=== PATIENT | female | born 1965 | race Caucasian/White ===

== ENCOUNTER 2017-12-25 15:03 | Observation (INO) | payer BC, SELFPAY ==
[2017-12-25] MEDS ORDERED: DUONEB 0.5-3 MG/3 ml Neb IH ONE ×2 (15:30→15:47)
[2017-12-25] MEDS ORDERED: Levofloxacin 500MG/100ML D5W 500 MG/100 ML BAG IV STA (15:30)
[2017-12-25] MEDS ORDERED: solu-MEDROL 125 MG IV ONE (15:30)
[2017-12-25] MEDS ORDERED: Levofloxacin 500MG/100ML D5W 500 MG/100 ML BAG IV ONE (15:38)
[2017-12-25] MEDS ORDERED: solu-MEDROL 125 MG ONE (15:38)
[2017-12-25] MEDS: Sodium Chloride 0.9% 1000 ML 1,000 ML IV SCH ×2 (15:43→20:37)
[2017-12-25 15:57] LABS: BASOPHIL % 0.6 % (0.0-0.4); Basophil (Absolute #) 0.05 (0-0.4); Eosinophil % 4.7 % (0.00-5.0); Eosinophil (Absolute #) 0.41 (0-0.5); Granulocyte Absolute (ANC) 6.03 (1.4-6.9); Granulocytes % 69.2 % (36.0-66.0); Hematocrit 41.8 % (35-47); Hemoglobin 13.6 gm/dl (12.0-16.0); Lymphocyte (Absolute #) 1.53 (1.0-4.6); Lymphocytes % 17.5 % (24.0-44.0); Mean Cell Volume 94.1 fl (78-100); Mean Corpuscular Hemoglobin 30.6 pg (26-32); Mean Corpuscular Hgb Concent. 32.5 g/dl (32-36); Mean Platelet Volume 11.6 fl (6-9.5); Platelet Count 264 K/mm3 (150-450); Red Blood Count 4.44 M/mm3 (4.1-5.4); Red Cell Distribution Width 13.2 % (11.5-14.0); White Blood Count 8.7 K/mm3 (4.0-10.5)
--- NOTE | 2017-12-25 16:03 | ERPHSYRPT ---
- History of Present Illness Time Seen by Provider: 12/25/17 15:15 Source: patient Exam Limitations: clinical condition Patient Subjective Stated Complaint: short of breath Triage Nursing Assessment: Pt c/o of shortness of breath, inspiratory and expiratory wheezing heard throughout, non productive cough, no edema, pulses normal, used husbands nebulizer before arriving at ER, O2 88% on room air, 95% with 2L NC, appears to be in mild distress Physician History: PATIENT WITH A HISTORY OF REACTIVE AIRWAY DISEASE, HYPERTENSION AND HYPOTHYROIDISM COMPLAINS OF A NONPRODUCTIVE COUGH, SHORTNESS OF BREATH WITH EXERTIONAL DYSPNEA X 3-4 DAYS. FINISHED AN ANTIBIOTIC COURSE OF ZITHROMAX AND MEDROL DOSEPAK THIS WEEK. STATES SYMPTOMS OF DYSPNEA IS WORSE. DENIES FEVER OR CHILLS. HAS ASSOCIATED CHEST TIGHTNESS. Timing/Duration: day(s) Activities at Onset: activity Severity of Dyspnea-Max: moderate Severity of Dyspnea-Current: moderate Possible Cause: occasional episodes Modifying Factors: Improves With: activity, exertion Associated Symptoms: constant, cough, wheezing International travel in last 2 weeks: No Allergies/Adverse Reactions: latex Adverse Reaction (Verified 12/25/17 15:17) IV DYE Allergy (Severe, Uncoded 02/26/13 21:47) Home Medications: Levothyroxine Sodium 50 Mcg [Synthroid 50 Mcg] 50 mcg PO DAILY 02/26/13 [ History] Albuterol Sulfate Mdi [Proair Hfa MDI] 1 inh PO UD PRN 12/25/17 [History] Aspirin EC 81 mg [Ecotrin 81 mg] 81 mg PO DAILY 12/25/17 [History] Carvedilol 3.125 mg [Coreg 3.125 MG] 3.125 mg PO BID 12/25/17 [History] Hydrocodone/APAP 5/325 [Callaway 5/325 mg] 1 - 2 tab PO Q4H PRN 12/25/17 [ History] Lisinopril [Zestril] 2.5 mg PO DAILY 12/25/17 [History] Omeprazole 20 MG [Prilosec 20 mg] 20 mg PO DAILY 12/25/17 [History] methylPREDNISolone [Methylprednisolone] 1 tab PO UD 12/25/17 [History] Hx Tetanus, Diphtheria Vaccination/Date Given: No Hx Influenza Vaccination/Date Given: No Hx Pneumococcal Vaccination/Date Given: No - Review of Systems Constitutional: No Symptoms, No Fever, No Chills Eyes: No Symptoms Ears, Nose, & Throat: No Symptoms Respiratory: Cough, Dyspnea, Dyspnea on Exertion (AGUERO), Wheezing Cardiac: Chest Pain, No Edema, No Syncope Abdominal/Gastrointestinal: No Abdominal Pain, No Nausea, No Vomiting, No Diarrhea Genitourinary Symptoms: No Symptoms, No Dysuria Musculoskeletal: No Symptoms, No Back Pain, No Neck Pain Skin: No Rash Neurological: No Dizziness, No Focal Weakness, No Sensory Changes Psychological: No Symptoms Endocrine: No Symptoms All Other Systems: Reviewed and Negative - Past Medical History Pertinent Past Medical History: Yes Neurological History: No Pertinent History ENT History: No Pertinent History Cardiac History: Hypertension Respiratory History: Asthma Endocrine Medical History: Hypothyroidism Musculoskeletal History: No Pertinent History GI Medical History: GERD History: No Pertinent History Psycho-Social History: No Pertinent History Female Reproductive Disorders: No Pertinent History - Past Surgical History Past Surgical History: Yes Neuro Surgical History: No Pertinent History Cardiac: No Pertinent History Respiratory: No Pertinent History Gastrointestinal: Appendectomy Musculoskeletal: Joint Replacement, Orthopedic Surgery Female Surgical History: Section - Social History Smoking Status: Former smoker Exposure to second hand smoke: No Drug Use: none Patient Lives Alone: No - Female History Hx Now: No - Nursing Vital Signs Nursing Vital Signs: Initial Vital Signs Pulse Rate 90 12/25/17 15:04 Respiratory Rate 23 12/25/17 15:04 Blood Pressure 136/80 12/25/17 15:04 O2 Sat by Pulse Oximetry 88 L 12/25/17 15:04 Pain Scale Pain Intensity 2 - Physical Exam General Appearance: mild distress, other (ARRIVES TO EMERGENCY WITH MODERATE TACHYPNEA AND AUDIBLE WHEEZES.) Ears, Nose, Throat Exam: hearing grossly normal Neck Exam: normal inspection, supple Respiratory Exam: diminished breath sounds, prolonged expirations, wheezing Cardiovascular/Chest Exam: normal heart sounds, regular rate/rhythm, normal peripheral pulses Abdominal/Gastrointestinal Exam: soft, normal bowel sounds, other (OBESE) Peripheral Pulses Exam: carotid (R): 2+, carotid (L): 2+, femoral (R): 2+, femoral (L): 2+, dorsalis-pedis (R): 2+, dorsalis-pedis (L): 2+ Neurologic Exam: alert, oriented x 3, cooperative Skin Exam: normal color, warm SpO2 Interpretation: normal SpO2: 98 Oxygen Delivery: Nasal Cannula - Course EKG Interpreted by Me: RATE, Sinus Rhythm, NORMAL AXIS - Radiology Exams Chest X-ray Interpretation: Interpreted by me (RIGHT LOWER LOBE INFILTRATE) Ordered Tests: Active Orders 24 hr Category Date Time Status Up Ad Itzel ROUTINE Activity 12/25/17 17:41 Active Code Status Order ROUTINE Care 12/25/17 17:41 Active EKG-ER Only STAT Care 12/25/17 15:30 Active IV Care Q6H Care 12/25/17 17:41 Active IV Insertion STAT Care 12/25/17 15:46 Active Oxygen-ED Only NASAL CANNULA 2 lpm Care 12/25/17 15:[address] in Observation ROUTINE Care 12/25/17 17:41 Active Filiberto Hose, Apply ROUTINE Care 12/25/17 17:41 Active Telemetry ROUTINE Care 12/25/17 17:41 Active Vital Signs Q4H Care 12/25/17 17:41 Active Weight,Daily 0600 Care 12/25/17 17:41 Active Regular Diet Diet 12/25/17 Breakfast Active CHEST 1 VIEW (PORTABLE) Stat Exams 12/25/17 16:29 Taken BMP Stat Lab 12/25/17 15:20 Completed CBC W DIFF Stat Lab 12/25/17 15:20 Completed D-DIMER QUANTITATION Stat Lab 12/25/17 15:20 Completed Lactic Acid Stat Lab 12/25/17 15:30 Completed MAGNESIUM Stat Lab 12/25/17 15:20 Completed PT INR [PROTIME WITH INR] Stat Lab 12/25/17 16:22 Completed TROPONIN Q3H Lab 12/25/17 15:20 Completed TROPONIN Q3H Lab 12/25/17 18:45 Ordered TROPONIN Q3H Lab 12/25/17 21:45 Ordered TROPONIN Q3H Lab 12/26/17 00:45 Ordered TROPONIN Q3H Lab 12/26/17 03:45 Ordered Oxygen NASAL CANNULA 2 lpm RT 12/25/17 17:41 Active Peak Expiratory Flow Rate ONCE RT 12/25/17 15:36 Completed Pulse Oximetry CONTINUOUS RT 12/25/17 17:43 Active Respiratory Nebulizer STAT RT 12/25/17 15:34 Completed Respiratory Nebulizer STAT RT 12/25/17 16:30 Completed Respiratory Therapy Assessment DAILY RT 12/25/17 15:44 Completed Respiratory Therapy Assessment DAILY RT 12/25/17 16:51 Active Respiratory Therapy Consult ROUTINE RT 12/25/17 17:41 Active Transfer Order Routine Transfer 12/25/17 Ordered Medication Summary Generic Name Dose Route Start Last Admin Trade Name Freq PRN Reason Stop Dose Admin Acetaminophen 650 mg 12/25/17 17:47 Tylenol 325 Mg PO 01/24/18 17:46 Q4H PRN PRN PAIN AND/OR FEVER Albuterol/Ipratropium 3 ml 12/25/17 19:00 Duoneb 0.5-3 Mg/3 Ml Neb IH 01/24/18 18:59 Q4HRT [facility] Aspirin 81 mg 12/26/17 10:00 Ecotrin 81 Mg PO 01/25/18 09:59 DAILY MURTAZA Carvedilol 3.125 mg 12/25/17 22:00 Coreg 3.125 Mg PO 01/24/18 21:59 BID MURTAZA Famotidine 20 mg 12/25/17 22:00 Pepcid 20 Mg PO 01/24/18 21:59 BID MURTAZA Sodium Chloride 1,000 mls @ 50 mls/hr 12/25/17 15:30 12/25/17 15:43 Sodium Chloride 0.9% 1000 Ml IV 01/24/18 15:29 50 mls/hr .Q20H MURTAZA Administration Levofloxacin/Dextrose 750 mg in 150 mls @ 100 mls/hr 12/26/17 10:00 Levofloxacin 750mg/150ml D5w IV 01/25/18 09:59 Q24H10 MUR[facility]ZA Levalbuterol HCl 1.25 mg 12/25/17 17:47 Xopenex 1.25 Mg/0.5 Ml Ud Nebule IH 01/24/18 17:46 Q2HPRN PRN DIFFICULTY BREATHING Levothyroxine Sodium 50 mcg 12/26/17 10:00 Synthroid 50 Mcg PO 01/25/18 09:59 QAM [facility] Lisinopril 205 mg 12/26/17 10:00 Zestril 10 Mg PO 01/25/18 09:59 DAILY [facility] Methylprednisolone Sodium Succinate 80 mg 12/25/17 18:00 Solu-Medrol 125 Mg IV 01/24/18 17:59 Q6HT MURTAZA Discontinued Medications Generic Name Dose Route Start Last Admin Trade Name Annamaria PRN Reason Stop Dose Admin Acetaminophen 975 mg 12/25/17 16:50 12/25/17 16:52 Tylenol 325 Mg PO 12/25/17 16:51 975 mg STAT STA Administration Acetaminophen Confirm 12/25/17 16:51 Tylenol 325 Mg Administered 12/25/17 16:52 Dose 975 mg .ROUTE .STK-MED ONE Albuterol Sulfate 10 mg 12/25/17 16:29 12/25/17 16:40 Proventil 2.5 Mg/3 Ml Neb IH 12/25/17 16:30 10 mg STAT ONE Administration Albuterol Sulfate Confirm 12/25/17 16:35 Proventil 2.5 Mg/3 Ml Neb Administered 12/25/17 16:36 Dose 2.5 mg IH .STK-MED ONE Albuterol Sulfate Confirm 12/25/17 16:39 Proventil 2.5 Mg/3 Ml Neb Administered 12/25/17 16:40 Dose 7.5 mg IH .STK-MED ONE Albuterol/Ipratropium 3 ml 12/25/17 15:30 12/25/17 15:49 Duoneb 0.5-3 Mg/3 Ml Neb IH 12/25/17 15:31 3 ml STAT ONE Administration Albuterol/Ipratropium Confirm 12/25/17 15:47 Duoneb 0.5-3 Mg/3 Ml Neb Administered 12/25/17 15:48 Dose 3 ml IH .STK-MED ONE Enoxaparin Sodium 80 mg 12/25/17 17:40 12/25/17 17:52 Enoxaparin Sodium SQ 12/25/17 17:41 80 mg STAT ONE Administration Enoxaparin Sodium Confirm 12/25/17 17:50 Enoxaparin Sodium Administered 12/25/17 17:51 Dose 80 mg SQ .STK-MED ONE Levofloxacin/Dextrose 500 mg in 100 mls @ 100 mls/hr 12/25/17 15:30 12/25/17 16:54 Levofloxacin 500mg/100ml D5w IV 12/25/17 16:29 Infused STAT STA Infusion Levofloxacin/Dextrose Confirm 12/25/17 15:38 Levofloxacin 500mg/100ml D5w Administered 12/25/17 15:39 Dose 500 mg in 100 mls @ ud IV .STK-MED ONE Methylprednisolone Sodium Succinate 125 mg 12/25/17 15:30 12/25/17 15:42 Solu-Medrol 125 Mg IV 12/25/17 15:31 125 mg STAT ONE Administration Methylprednisolone Sodium Succinate Confirm 12/25/17 15:38 Solu-Medrol 125 Mg Administered 12/25/17 15:39 Dose 125 mg .ROUTE .STK-MED ONE Lab/Rad Data: Laboratory Result Diagrams 12/25/17 15:20 12/25/17 15:20 Laboratory Results 12/25/17 12/25/17 12/25/17 Range/Units 16:22 15:45 15:30 WBC (4.0-10.5) K/mm3 RBC (4.1-5.4) M/mm3 Hgb (12.0-16.0) gm/dl Hct (35-47) % MCV (78-100) fl MCH (26-32) pg MCHC (32-36) g/dl RDW (11.5-14.0) % Plt Count (150-450) K/mm3 MPV (6-9.5) fl Gran % (36.0-66.0) % Eos # (Auto) (0-0.5) Absolute Lymphs (auto) (1.0-4.6) Absolute Monos (auto) (0.0-1.3) Lymphocytes % (24.0-44.0) % Monocytes % (0.0-12.0) % Eosinophils % (0.00-5.0) % Basophils % (0.0-0.4) % Absolute Granulocytes (1.4-6.9) Basophils # (0-0.4) PT 12.4 H (9.95-12.35) SECONDS INR 1.07 (0.8-3.0) D-Dimer (215-500) ng/mL Sodium (137-145) mmol/L Potassium (3.5-5.1) mmol/L Chloride (98-107) mmol/L Carbon Dioxide (22-30) mmol/L Anion Gap (5-15) MEQ/L BUN (7-17) mg/dL Creatinine (0.52-1.04) mg/dL Estimated GFR ML/MIN Glucose (74-106) mg/dL Lactic Acid 0.9 (0.4-2.0) Calcium (8.4-10.2) mg/dL Magnesium (1.6-2.3) mg/dL Troponin I (0.000-0.034) ng/mL Influenza Type A Ag NEGATIVE (NEGATIVE) Influenza Type B Ag NEGATIVE (NEGATIVE) RSV (PCR) NEGATIVE (Negative) 12/25/17 12/25/17 12/25/17 Range/Units 15:20 15:20 15:20 WBC (4.0-10.5) K/mm3 RBC (4.1-5.4) M/mm3 Hgb (12.0-16.0) gm/dl Hct (35-47) % MCV (78-100) fl MCH (26-32) pg MCHC (32-36) g/dl RDW (11.5-14.0) % Plt Count (150-450) K/mm3 MPV (6-9.5) fl Gran % (36.0-66.0) % Eos # (Auto) (0-0.5) Absolute Lymphs (auto) (1.0-4.6) Absolute Monos (auto) (0.0-1.3) Lymphocytes % (24.0-44.0) % Monocytes % (0.0-12.0) % Eosinophils % (0.00-5.0) % Basophils % (0.0-0.4) % Absolute Granulocytes (1.4-6.9) Basophils # (0-0.4) PT (9.95-12.35) SECONDS INR (0.8-3.0) D-Dimer 887 H* (215-500) ng/mL Sodium 142 (137-145) mmol/L Potassium 4.0 (3.5-5.1) mmol/L Chloride 105 (98-107) mmol/L Carbon Dioxide 30 (22-30) mmol/L Anion Gap 12.4 (5-15) MEQ/L BUN 13 (7-17) mg/dL Creatinine 1.07 H (0.52-1.04) mg/dL Estimated GFR 56.8 ML/MIN Glucose 95 (74-106) mg/dL Lactic Acid (0.4-2.0) Calcium 9.4 (8.4-10.2) mg/dL Magnesium 1.9 (1.6-2.3) mg/dL Troponin I < 0.012 (0.000-0.034) ng/mL Influenza Type A Ag (NEGATIVE) Influenza Type B Ag (NEGATIVE) RSV (PCR) (Negative) 12/25/17 Range/Units 15:20 WBC 8.7 (4.0-10.5) K/mm3 RBC 4.44 (4.1-5.4) M/mm3 Hgb 13.6 (12.0-16.0) gm/dl Hct 41.8 (35-47) % MCV 94.1 (78-100) fl MCH 30.6 (26-32) pg MCHC 32.5 (32-36) g/dl RDW 13.2 (11.5-14.0) % Plt Count 264 (150-450) K/mm3 MPV 11.6 H (6-9.5) fl Gran % 69.2 H (36.0-66.0) % Eos # (Auto) 0.41 (0-0.5) Absolute Lymphs (auto) 1.53 (1.0-4.6) Absolute Monos (auto) 0.70 (0.0-1.3) Lymphocytes % 17.5 L (24.0-44.0) % Monocytes % 8.0 (0.0-12.0) % Eosinophils % 4.7 (0.00-5.0) % Basophils % 0.6 (0.0-0.4) % Absolute Granulocytes 6.03 (1.4-6.9) Basophils # 0.05 (0-0.4) PT (9.95-12.35) SECONDS INR (0.8-3.0) D-Dimer (215-500) ng/mL Sodium (137-145) mmol/L Potassium (3.5-5.1) mmol/L Chloride (98-107) mmol/L Carbon Dioxide (22-30) mmol/L Anion Gap (5-15) MEQ/L BUN (7-17) mg/dL Creatinine (0.52-1.04) mg/dL Estimated GFR ML/MIN Glucose (74-106) mg/dL Lactic Acid (0.4-2.0) Calcium (8.4-10.2) mg/dL Magnesium (1.6-2.3) mg/dL Troponin I (0.000-0.034) ng/mL Influenza Type A Ag (NEGATIVE) Influenza Type B Ag (NEGATIVE) RSV (PCR) (Negative) - Progress Progress: improved Air Movement: fair Progress Note: 12/25/17 16:24 PULSE OXIMETRY 88% UPON ARRIVAL, LEVAQUIN 500MG IVPB AFTER 2 SETS OF BLOOD CULTURES, ELEVATED DDIMER 887, HAS IV CONTRAST ALLERGY, ADMINISTERED LOVENOX 80MG SUBQ, ADMINISTERED DUO NEB AEROSOL, FOLLOWED BY CONTINUOUS ALBUTEROL 10MG OVER 1 HOUR, IMPROVED AIR EXCHANGE BUT WHEEZES PERSIST. 12/25/17 17:35 Blood Culture(s) Obtained: Yes Antibiotics given: Yes Discussed with : Laurie Will see patient in: hospital (observation) (DISCUSSED WITH DR GUTIERRES AT 1730 FOR OBSERVATION) - Departure Time of Disposition: 17:56 Departure Disposition: Observation Clinical Impression: PNEUMONIA WITH BRONCHIOSPASM Condition: Stable Critical Care Time: No Referrals: EFRA GUTIERRES MD [Primary Care Provider] -
[2017-12-25 16:11] LABS: ANION GAP 12.4 MEQ/L (5-15); Calcium 9.4 mg/dL (8.4-10.2); Creatinine 1 1.07 mg/dL (0.52-1.04)
[2017-12-25] MEDS ORDERED: PROVENTIL 2.5 MG/3 ML NEB IH ONE ×3 (16:29→16:39)
[2017-12-25 16:30] LABS: INFLUENZA A NEGATIVE (NEGATIVE); INFLUENZA B NEGATIVE (NEGATIVE); RESPIRATORY SYNCTIAL VIRUS NEGATIVE (Negative)
[2017-12-25 16:44] LABS: INR 1.07 (0.8-3.0)
[2017-12-25] MEDS ORDERED: TYLENOL 325 MG PO STA (16:50)
[2017-12-25] MEDS ORDERED: TYLENOL 325 MG ONE (16:51)
[2017-12-25] MEDS ORDERED: ENOXAPARIN SODIUM SQ ONE ×2 (17:40→17:50)
[2017-12-25] MEDS ORDERED: Xopenex 1.25 MG/0.5 ML UD NEBULE IH PRN (17:47)
[2017-12-25] MEDS ORDERED: solu-MEDROL 125 MG IV SCH (18:00)
--- NOTE | 2017-12-25 20:03 | XRAY ---
Indication: Short of breath. Comparison: July 31, 2008. Portable chest demonstrates new right lower lobe infiltrate without consolidation/large effusion. Remaining heart and left lung unremarkable. Bony thorax intact.
[2017-12-25] MEDS ORDERED: NORCO 5/325 MG PO PRN (21:03)
[2017-12-25] MEDS: Pepcid 20 MG PO SCH (22:00)
[2017-12-25] MEDS: solu-MEDROL 125 MG IV SCH ×2 (22:00→23:24)
[2017-12-25] MEDS: Coreg 3.125 MG PO SCH (22:00)
[2017-12-25] MEDS: DUONEB 0.5-3 MG/3 ml Neb IH SCH (22:56)
[2017-12-26] MEDS: DUONEB 0.5-3 MG/3 ml Neb IH SCH ×6 (03:19→22:51)
[2017-12-26] MEDS: solu-MEDROL 125 MG IV SCH ×4 (05:28→23:12)
[2017-12-26] MEDS: TYLENOL 325 MG PO PRN ×2 (06:57→18:50)
[2017-12-26] MEDS ORDERED: TYLENOL 325 MG ONE (06:57)
[2017-12-26] MEDS ORDERED: ALBUTEROL SULFATE MDI PO PRN (07:40)
[2017-12-26] MEDS ORDERED: PROVENTIL COMMON CANISTER IH PRN (07:43)
[2017-12-26] MEDS ORDERED: Medrol Dosepack PO SCH (07:45)
[2017-12-26] MEDS ORDERED: FLUZONE QUAD (36mo-64yo) 2018-2019 SYRINGE IM ONE (10:00)
[2017-12-26] MEDS: Zestril 5 MG PO SCH (10:48)
[2017-12-26] MEDS: Pepcid 20 MG PO SCH ×2 (10:48→21:21)
[2017-12-26] MEDS: SYNTHROID 50 MCG PO SCH (10:48)
[2017-12-26] MEDS: Protonix 40MG Tablet PO SCH (10:48)
[2017-12-26] MEDS: Coreg 3.125 MG PO SCH ×2 (10:49→21:21)
[2017-12-26] MEDS: ECOTRIN 81 MG PO SCH (10:49)
[2017-12-26] MEDS: LEVOFLOXACIN 750MG/150ML D5W 750 MG/150 ML BAG IV SCH (10:52)
--- NOTE | 2017-12-26 11:47 | PCM.HP ---
History of Present Illness - Chief Complaint Chief Complaint: cough and shortness of breath for 3 days, failed outpatient treatment History of Present Illness: is a 52 year old female.Pt c/o of shortness of breath, inspiratory and expiratory wheezing heard throughout, non productive cough, no edema, pulses normal, used husbands nebulizer before arriving at ER, O2 88% on room air , 95% with 2L NC, appears to be in mild distress - Review of Systems Constitutional: No Fever, No Chills Eyes: No Symptoms Ears, Nose, & Throat: No Symptoms Respiratory: No Cough, No Short Of Breath Cardiac: No Chest Pain, No Edema, No Syncope Abdominal/Gastrointestinal: No Abdominal Pain, No Nausea, No Vomiting, No Diarrhea Genitourinary Symptoms: No Dysuria Musculoskeletal: No Back Pain, No Neck Pain Skin: No Rash Neurological: No Dizziness, No Focal Weakness, No Sensory Changes Psychological: No Symptoms Endocrine: No Symptoms Hematologic/Lymphatic: No Symptoms Immunological/Allergic: No Symptoms Medications & Allergies Home Medications: Home Medication List Levothyroxine Sodium 50 Mcg [Synthroid 50 Mcg] 50 mcg PO DAILY 02/26/13 [ History Confirmed 12/25/17] Albuterol Sulfate Mdi [Proair Hfa MDI] 2 inh PO Q4-6HPRN PRN 12/25/17 [ History Confirmed 12/25/17] Aspirin EC 81 mg [Ecotrin 81 mg] 81 mg PO DAILY 12/25/17 [History Confirmed 12/25/17] Carvedilol 3.125 mg [Coreg 3.125 MG] 3.125 mg PO BID 12/25/17 [History Confirmed 12/25/17] Hydrocodone/APAP 5/325 [[place] 5/325 mg] 0.5 tab PO DAILY 12/25/17 [ History Confirmed 12/25/17] Lisinopril [Zestril] 2.5 mg PO DAILY 12/25/17 [History Confirmed 12/25/17] Omeprazole 20 MG [Prilosec 20 mg] 20 mg PO DAILY 12/25/17 [History Confirmed ] methylPREDNISolone [Methylprednisolone] 1 tab PO UD 12/25/17 [History Confirmed 10/28/18] Allergies/Adverse Reactions: Allergies Allergy/AdvReac Type Severity Reaction Status Date / Time latex AdvReac Verified 12/25/17 18:33 IV DYE Allergy Severe Uncoded 12/25/17 18:33 - Past Medical History Past Medical History: Yes Neurological History: No Pertinent History ENT History: No Pertinent History Cardiac History: Hypertension Respiratory History: Pneumonia Endocrine Medical History: Hypothyroidism Musculoskelatal History: No Pertinent History GI Medical History: GERD History: No Pertinent History Pyscho-Social History: No Pertinent History Reproductive Disorders: No Pertinent History - Female History Hx Last Menstrual Period: Unknown Are you now?: No - Past Surgical History Past Surgical History: Yes Neuro Surgical History: No Pertinent History Cardiac History: No Pertinent History Respiratory Surgery: No Pertinent History GI Surgical History: Appendectomy, Cholecystectomy Musculskeletal Surgical Hx: Joint Replacement, Orthopedic Surgery Female Surgical History: Section Other Surgical History: Broken Arm, John/elbow replacement Right arm, left knee replacement. Squamous cells removed from cervix. - Social History Smoking Status: Former smoker Exposure to second hand smoke: No Alcohol: None Drug Use: none - Physical Exam Vital Signs: Vital Signs - 24 hr Temp Pulse Resp BP Pulse Ox 12/26/17 10:35 78 20 92 L 12/26/17 07:47 98.1 F 76 18 109/72 91 L 12/26/17 06:45 76 18 91 L 12/26/17 04:12 98.6 F 72 20 97/50 94 L 12/26/17 04:00 20 12/26/17 00:00 20 12/25/17 23:28 99.0 F 93 H 20 98/57 95 12/25/17 22:59 92 H 18 95 12/25/17 20:00 20 12/25/17 19:51 98.9 F 81 20 135/73 95 12/25/17 19:29 78 18 95 12/25/17 18:48 98.9 F 81 20 135/73 95 12/25/17 18:00 98 12/25/17 17:54 98.0 F 79 16 117/60 94 L 12/25/17 17:31 98.0 F 90 18 117/60 96 12/25/17 16:52 89 20 96 12/25/17 16:23 97.6 F 75 18 99/80 96 12/25/17 15:52 68 18 98 12/25/17 15:04 90 23 136/80 93 L Oxygen-Last 24 hours O2 Percentage 2 Liters = 28% O2 Percentage 2 Liters = 28% O2 Percentage 6 Liters = 44% O2 Percentage 2 Liters = 28% General Appearance: no apparent distress, alert Neurologic Exam: alert, oriented x 3, cooperative, normal mood/affect, nml cerebellar function, nml station & gait, sensation nml, No motor deficits Eye Exam: PERRL/EOMI, eyes nml inspection Ears, Nose, Throat Exam: normal ENT inspection, TMs normal, pharynx normal, moist mucous membranes Neck Exam: normal inspection, non-tender, supple, full range of motion Respiratory Exam: diminished breath sounds, prolonged expirations, crackles/ rales, rhonchi, wheezing, No respiratory distress Cardiovascular Exam: regular rate/rhythm, normal heart sounds, normal peripheral pulses Gastrointestinal/Abdomen Exam: soft, normal bowel sounds, No tenderness, No mass Back Exam: normal inspection, normal range of motion, No CVA tenderness, No vertebral tenderness Extremity Exam: normal inspection, normal range of motion, pelvis stable Skin Exam: normal color, warm, dry, No rash Lymphatic Exam: No adenopathy Results - Labs Lab/Micro Results: Lab Results-Last 24 Hours 12/25/17 12/25/17 12/25/17 Range/Units 15:20 15:20 15:20 WBC 8.7 (4.0-10.5) K/mm3 RBC 4.44 (4.1-5.4) M/mm3 Hgb 13.6 (12.0-16.0) gm/dl Hct 41.8 (35-47) % MCV 94.1 (78-100) fl MCH 30.6 (26-32) pg MCHC 32.5 (32-36) g/dl RDW 13.2 (11.5-14.0) % Plt Count 264 (150-450) K/mm3 MPV 11.6 H (6-9.5) fl Gran % 69.2 H (36.0-66.0) % Eos # (Auto) 0.41 (0-0.5) Absolute Lymphs (auto) 1.53 (1.0-4.6) Absolute Monos (auto) 0.70 (0.0-1.3) Lymphocytes % 17.5 L (24.0-44.0) % Monocytes % 8.0 (0.0-12.0) % Eosinophils % 4.7 (0.00-5.0) % Basophils % 0.6 (0.0-0.4) % Absolute Granulocytes 6.03 (1.4-6.9) Basophils # 0.05 (0-0.4) PT (9.95-12.35) SECONDS INR (0.8-3.0) D-Dimer 887 H* (215-500) ng/mL Sodium 142 (137-145) mmol/L Potassium 4.0 (3.5-5.1) mmol/L Chloride 105 (98-107) mmol/L Carbon Dioxide 30 (22-30) mmol/L Anion Gap 12.4 (5-15) MEQ/L BUN 13 (7-17) mg/dL Creatinine 1.07 H (0.52-1.04) mg/dL Estimated GFR 56.8 ML/MIN Glucose 95 (74-106) mg/dL Lactic Acid (0.4-2.0) Calcium 9.4 (8.4-10.2) mg/dL Magnesium 1.9 (1.6-2.3) mg/dL Troponin I (0.000-0.034) ng/mL Influenza Type A Ag (NEGATIVE) Influenza Type B Ag (NEGATIVE) RSV (PCR) (Negative) 12/25/17 12/25/17 12/25/17 Range/Units 15:20 15:30 15:45 WBC (4.0-10.5) K/mm3 RBC (4.1-5.4) M/mm3 Hgb (12.0-16.0) gm/dl Hct (35-47) % MCV (78-100) fl MCH (26-32) pg MCHC (32-36) g/dl RDW (11.5-14.0) % Plt Count (150-450) K/mm3 MPV (6-9.5) fl Gran % (36.0-66.0) % Eos # (Auto) (0-0.5) Absolute Lymphs (auto) (1.0-4.6) Absolute Monos (auto) (0.0-1.3) Lymphocytes % (24.0-44.0) % Monocytes % (0.0-12.0) % Eosinophils % (0.00-5.0) % Basophils % (0.0-0.4) % Absolute Granulocytes (1.4-6.9) Basophils # (0-0.4) PT (9.95-12.35) SECONDS INR (0.8-3.0) D-Dimer (215-500) ng/mL Sodium (137-145) mmol/L Potassium (3.5-5.1) mmol/L Chloride (98-107) mmol/L Carbon Dioxide (22-30) mmol/L Anion Gap (5-15) MEQ/L BUN (7-17) mg/dL Creatinine (0.52-1.04) mg/dL Estimated GFR ML/MIN Glucose (74-106) mg/dL Lactic Acid 0.9 (0.4-2.0) Calcium (8.4-10.2) mg/dL Magnesium (1.6-2.3) mg/dL Troponin I < 0.012 (0.000-0.034) ng/mL Influenza Type A Ag NEGATIVE (NEGATIVE) Influenza Type B Ag NEGATIVE (NEGATIVE) RSV (PCR) NEGATIVE (Negative) 12/25/17 12/25/17 12/25/17 Range/Units 16:22 18:45 21:45 WBC (4.0-10.5) K/mm3 RBC (4.1-5.4) M/mm3 Hgb (12.0-16.0) gm/dl Hct (35-47) % MCV (78-100) fl MCH (26-32) pg MCHC (32-36) g/dl RDW (11.5-14.0) % Plt Count (150-450) K/mm3 MPV (6-9.5) fl Gran % (36.0-66.0) % Eos # (Auto) (0-0.5) Absolute Lymphs (auto) (1.0-4.6) Absolute Monos (auto) (0.0-1.3) Lymphocytes % (24.0-44.0) % Monocytes % (0.0-12.0) % Eosinophils % (0.00-5.0) % Basophils % (0.0-0.4) % Absolute Granulocytes (1.4-6.9) Basophils # (0-0.4) PT 12.4 H (9.95-12.35) SECONDS INR 1.07 (0.8-3.0) D-Dimer (215-500) ng/mL Sodium (137-145) mmol/L Potassium (3.5-5.1) mmol/L Chloride (98-107) mmol/L Carbon Dioxide (22-30) mmol/L Anion Gap (5-15) MEQ/L BUN (7-17) mg/dL Creatinine (0.52-1.04) mg/dL Estimated GFR ML/MIN Glucose (74-106) mg/dL Lactic Acid (0.4-2.0) Calcium (8.4-10.2) mg/dL Magnesium (1.6-2.3) mg/dL Troponin I < 0.012 < 0.012 (0.000-0.034) ng/mL Influenza Type A Ag (NEGATIVE) Influenza Type B Ag (NEGATIVE) RSV (PCR) (Negative) 12/26/17 12/26/17 Range/Units 00:55 04:00 WBC (4.0-10.5) K/mm3 RBC (4.1-5.4) M/mm3 Hgb (12.0-16.0) gm/dl Hct (35-47) % MCV (78-100) fl MCH (26-32) pg MCHC (32-36) g/dl RDW (11.5-14.0) % Plt Count (150-450) K/mm3 MPV (6-9.5) fl Gran % (36.0-66.0) % Eos # (Auto) (0-0.5) Absolute Lymphs (auto) (1.0-4.6) Absolute Monos (auto) (0.0-1.3) Lymphocytes % (24.0-44.0) % Monocytes % (0.0-12.0) % Eosinophils % (0.00-5.0) % Basophils % (0.0-0.4) % Absolute Granulocytes (1.4-6.9) Basophils # (0-0.4) PT (9.95-12.35) SECONDS INR (0.8-3.0) D-Dimer (215-500) ng/mL Sodium (137-145) mmol/L Potassium (3.5-5.1) mmol/L Chloride (98-107) mmol/L Carbon Dioxide (22-30) mmol/L Anion Gap (5-15) MEQ/L BUN (7-17) mg/dL Creatinine (0.52-1.04) mg/dL Estimated GFR ML/MIN Glucose (74-106) mg/dL Lactic Acid (0.4-2.0) Calcium (8.4-10.2) mg/dL Magnesium (1.6-2.3) mg/dL Troponin I < 0.012 < 0.012 (0.000-0.034) ng/mL Influenza Type A Ag (NEGATIVE) Influenza Type B Ag (NEGATIVE) RSV (PCR) (Negative) - Radiology Impressions Radiology Exams & Impressions: Radiology Procedures Category Date Time Status CHEST 1 VIEW (PORTABLE) Stat Exams 12/25/17 16:29 Completed PULMONARY PERF VENTILATION [NUCMED] Routine Exams 12/26/17 10:00 Ordered - Other Procedures and Tests Respiratory Therapy 12/25/17 15:36 Peak Expiratory Flow Rate ONCE 12/25/17 17:41 Oxygen NASAL CANNULA 2 lpm 12/25/17 22:59 Respiratory Therapy Assessment DAILY Assessment/Plan (1) Right lower lobe pulmonary infiltrate Current Visit: Yes Status: Acute Onset Date: ~12/25/17 Assessment & Plan: Last Vital Signs Temp 98.1 F 12/26/17 07:47 Pulse 78 12/26/17 10:35 Resp 20 12/26/17 10:35 BP 109/72 12/26/17 07:47 Pulse Ox 92 L 12/26/17 10:35 Allergies latex Adverse Reaction (Verified 12/25/17 18:33) IV DYE Allergy (Severe, Uncoded 12/25/17 18:33) Active Medications Acetaminophen (Tylenol 325 Mg) 650 mg PO Q4H PRN PRN PRN Reason: PAIN AND/OR FEVER Stop: 01/24/18 17:46 Last Admin: 12/26/17 06:57 Dose: 650 mg Hydrocodone Bitart/Acetaminophen ([place] 5/325 Mg) 0 tab PO Q4H PRN PRN PRN Reason: PAIN Stop: 12/30/17 21:02 Albuterol Sulfate (Proventil Common Canister) 2 puff IH UD PRN PRN Reason: SHORTNESS OF BREATH Stop: 01/25/18 07:42 Albuterol/Ipratropium (Duoneb 0.5-3 Mg/3 Ml Neb) 3 ml IH Q4HRT [facility] Stop: 01/24/18 18:59 Last Admin: 12/26/17 10:32 Dose: 3 ml Aspirin (Ecotrin 81 Mg) 81 mg PO DAILY [facility] Stop: 01/25/18 09:59 Last Admin: 12/26/17 10:49 Dose: 81 mg Carvedilol (Coreg 3.125 Mg) 3.125 mg PO BID [facility] Stop: 01/24/18 21:59 Last Admin: 12/26/17 10:49 Dose: 3.125 mg Famotidine (Pepcid 20 Mg) 20 mg PO BID [facility] Stop: 01/24/18 21:59 Last Admin: 12/26/17 10:48 Dose: 20 mg Sodium Chloride (Sodium Chloride 0.9% 1000 Ml) 1,000 mls @ 50 mls/hr IV .Q20H [facility] Stop: 01/24/18 15:29 Last Admin: 12/25/17 20:37 Dose: 50 mls/hr Levofloxacin/Dextrose (Levofloxacin 750mg/150ml D5w) 750 mg in 150 mls @ 100 mls/hr IV Q24H10 [facility] Stop: 01/25/18 09:59 Last Admin: 12/26/17 10:52 Dose: 100 mls/hr Levalbuterol HCl (Xopenex 1.25 Mg/0.5 Ml Ud Nebule) 1.25 mg IH Q2HPRN PRN PRN Reason: DIFFICULTY BREATHING Stop: 01/24/18 17:46 Levothyroxine Sodium (Synthroid 50 Mcg) 50 mcg PO QAM [facility] Stop: 01/25/18 09:59 Last Admin: 12/26/17 10:48 Dose: 50 mcg Lisinopril (Zestril 5 Mg) 2.5 mg PO DAILY [facility] Stop: 01/25/18 09:59 Last Admin: 12/26/17 10:48 Dose: 2.5 mg Methylprednisolone Sodium Succinate (Solu-Medrol 125 Mg) 80 mg IV Q6HT [facility] Stop: 01/24/18 21:59 Last Admin: 12/26/17 05:28 Dose: 80 mg Pantoprazole Sodium (Protonix 40mg Tablet) 40 mg PO DAILY [facility] Stop: 01/25/18 09:59 Last Admin: 12/26/17 10:48 Dose: 40 mg Intake & Output 12/25/17 12/26/17 11:59 11:59 Intake Total 100 Balance 100 Weight 133.9 kg Orders 12/25/17 22:00 Methylprednis Sod Succ 125 mg* [solu-MEDROL 125 MG] 80 mg IV Q6HT 12/25/17 22:59 Respiratory Therapy Assessment DAILY 12/26/17 06:59 Pulse Oximetry .spot check 12/26/17 07:43 Albuterol Common Canister [Proventil Common Canister] 2 puff IH UD PRN 12/26/17 07:45 Hydrocodone/APAP 5/325 [[place] 5/325 mg] 0 tab PO Q4H PRN PRN 12/26/17 10:00 PANTOPRAZOLE 40 mg Tablet [Protonix 40MG Tablet] 40 mg PO DAILY Lab Tests 12/25/17 12/25/17 12/25/17 15:20 15:20 15:20 WBC 8.7 RBC 4.44 Hgb 13.6 Hct 41.8 MCV 94.1 MCH 30.6 MCHC 32.5 RDW 13.2 Plt Count 264 MPV 11.6 H Gran % 69.2 H Eos # (Auto) 0.41 Absolute Lymphs (auto) 1.53 Absolute Monos (auto) 0.70 Lymphocytes % 17.5 L Monocytes % 8.0 Eosinophils % 4.7 Basophils % 0.6 Absolute Granulocytes 6.03 Basophils # 0.05 PT INR D-Dimer 887 H* Sodium 142 Potassium 4.0 Chloride 105 Carbon Dioxide 30 Anion Gap 12.4 BUN 13 Creatinine 1.07 H Estimated GFR 56.8 Glucose 95 Lactic Acid Calcium 9.4 Magnesium 1.9 Troponin I Influenza Type A Ag Influenza Type B Ag RSV (PCR) 12/25/17 12/25/17 12/25/17 15:20 15:30 15:45 WBC RBC Hgb Hct MCV MCH MCHC RDW Plt Count MPV Gran % Eos # (Auto) Absolute Lymphs (auto) Absolute Monos (auto) Lymphocytes % Monocytes % Eosinophils % Basophils % Absolute Granulocytes Basophils # PT INR D-Dimer Sodium Potassium Chloride Carbon Dioxide Anion Gap BUN Creatinine Estimated GFR Glucose Lactic Acid 0.9 Calcium Magnesium Troponin I < 0.012 Influenza Type A Ag NEGATIVE Influenza Type B Ag NEGATIVE RSV (PCR) NEGATIVE 12/25/17 12/25/17 12/25/17 16:22 18:45 21:45 WBC RBC Hgb Hct MCV MCH MCHC RDW Plt Count MPV Gran % Eos # (Auto) Absolute Lymphs (auto) Absolute Monos (auto) Lymphocytes % Monocytes % Eosinophils % Basophils % Absolute Granulocytes Basophils # PT 12.4 H INR 1.07 D-Dimer Sodium Potassium Chloride Carbon Dioxide Anion Gap BUN Creatinine Estimated GFR Glucose Lactic Acid Calcium Magnesium Troponin I < 0.012 < 0.012 Influenza Type A Ag Influenza Type B Ag RSV (PCR) 12/26/17 12/26/17 00:55 04:00 WBC RBC Hgb Hct MCV MCH MCHC RDW Plt Count MPV Gran % Eos # (Auto) Absolute Lymphs (auto) Absolute Monos (auto) Lymphocytes % Monocytes % Eosinophils % Basophils % Absolute Granulocytes Basophils # PT INR D-Dimer Sodium Potassium Chloride Carbon Dioxide Anion Gap BUN Creatinine Estimated GFR Glucose Lactic Acid Calcium Magnesium Troponin I < 0.012 < 0.012 Influenza Type A Ag Influenza Type B Ag RSV (PCR) Code(s): R91.8 - OTHER NONSPECIFIC ABNORMAL FINDING OF LUNG FIELD (2) Acute dyspnea Current Visit: Yes Status: Acute Onset Date: ~12/25/17 Code(s): R06.00 - DYSPNEA, UNSPECIFIED (3) SOB (shortness of breath) Current Visit: Yes Status: Acute Onset Date: ~12/25/17 Code(s): R06.02 - SHORTNESS OF BREATH
[2017-12-26] MEDS: NORCO 5/325 MG PO PRN (13:23)
--- NOTE | 2017-12-26 14:59 | XRAY ---
Indication: Left-sided chest pain and short of breath. Elevated d-dimer. History of atrial fibrillation. Comparison: None Patient received 5 mCi technetium 99 MAA for the perfusion portion of the exam. Patient inhaled 36 mCi Air Supply stagnancy 99 DTPA. Multiplanar images obtained. Perfusion images demonstrates homogeneous radiopharmaceutical activity without focal segmental or subsegmental perfusion defect. Ventilation images demonstrates bilateral heterogeneous radiopharmaceutical activity. Small amount of ingested radiopharmaceutical activity in the GI system. Impression: No perfusion defects. Normal scan based on PIOPED criteria.
[2017-12-26] MEDS: Sodium Chloride 0.9% 1000 ML 1,000 ML IV SCH (21:20)
[2017-12-27] MEDS: DUONEB 0.5-3 MG/3 ml Neb IH SCH ×3 (03:24→10:48)
[2017-12-27] MEDS: TYLENOL 325 MG PO PRN (03:37)
[2017-12-27] MEDS: solu-MEDROL 125 MG IV SCH ×2 (05:43→12:15)
[2017-12-27] MEDS: Coreg 3.125 MG PO SCH (08:07)
[2017-12-27] MEDS: NORCO 5/325 MG PO PRN ×2 (08:07→08:12)
[2017-12-27] MEDS: SYNTHROID 50 MCG PO SCH (08:07)
[2017-12-27] MEDS: ECOTRIN 81 MG PO SCH (08:07)
[2017-12-27] MEDS: Protonix 40MG Tablet PO SCH (08:07)
[2017-12-27] MEDS: Pepcid 20 MG PO SCH (08:08)
[2017-12-27] MEDS: Zestril 5 MG PO SCH (08:08)
[2017-12-27] MEDS: LEVOFLOXACIN 750MG/150ML D5W 750 MG/150 ML BAG IV SCH (08:09)
[2017-12-27 11:03] VITALS: BP 114/68; PULSE 68; O2SAT 96
== END 2017-12-27 12:37 | disposition home or self-care (01) ==
LOC: ED 15:03 → SUPCPDRO 15:03 → MED SURG 18:14
PROVIDERS: ADMIT General Practice; ATTEND General Practice
DX: R91.8 Other nonspecific abnormal finding of lung field (principal); R06.00 Dyspnea, unspecified; R06.02 Shortness of breath; I10 Essential (primary) hypertension; E03.9 Hypothyroidism, unspecified; K21.9 Gastro-esophageal reflux disease without esophagitis; Z79.899 Other long term (current) drug therapy; Z23 Encounter for immunization
CPT/HCPCS: 36000; 36415; 71045; 78582; 80048; 83605; 83735; 84484; 85025; 85379; 85610; 87631; 93005; 93268; 94150; 94640; 94760; 96360; 96361; 96365; 96372; 96374; 96375; 99285; G0378; J7609; 90686; A9540; A9567; G0008; J1650; J1956; J2930; A9270-GY

== ENCOUNTER 2018-01-19 13:54 | Emergency (ER) | payer BC ==
[2018-01-19] MEDS ORDERED: solu-MEDROL 125 MG IV ONE (14:01)
[2018-01-19] MEDS ORDERED: DUONEB 0.5-3 MG/3 ml Neb IH ONE ×2 (14:01→14:03)
--- NOTE | 2018-01-19 14:09 | ERPHSYRPT ---
- History of Present Illness Time Seen by Provider: 01/19/18 14:05 Source: patient, family Exam Limitations: no limitations Physician History: pt had onset of SOBreath today with hx of hosp 3 weeks ago for pneumonia with reported neg w/u for blood clot at that time per pt. pt feels better after outside resp tx; no abd pain, no prior DVT or PE or hormonal tx, has hx reported of heart attack and afib in past - no stents or CABG. no current chest pain Timing/Duration: today Cough Quality/Degree: moderate, dry cough Possible Cause: occasional episodes Modifying Factors: Improves With: albuterol inhaler, albuterol nebulizer Associated Symptoms: shortness of breath Allergies/Adverse Reactions: latex Adverse Reaction (Verified 01/19/18 14:04) IV DYE Allergy (Severe, Uncoded 12/25/17 18:33) Home Medications: Levothyroxine Sodium 50 Mcg [Synthroid 50 Mcg] 50 mcg PO DAILY 02/26/13 [ History] Albuterol Sulfate Mdi [Proair Hfa MDI] 2 inh PO Q4-6HPRN PRN 12/25/17 [ History] Aspirin EC 81 mg [Ecotrin 81 mg] 81 mg PO DAILY 12/25/17 [History] Carvedilol 3.125 mg [Coreg 3.125 MG] 3.125 mg PO BID 12/25/17 [History] Hydrocodone/APAP 5/325 [[place] 5/325 mg] 0.5 tab PO DAILY 12/25/17 [History ] Lisinopril [Zestril] 2.5 mg PO DAILY 12/25/17 [History] Omeprazole 20 MG [Prilosec 20 mg] 20 mg PO DAILY 12/25/17 [History] Hx Tetanus, Diphtheria Vaccination/Date Given: No Hx Influenza Vaccination/Date Given: No Hx Pneumococcal Vaccination/Date Given: No - Review of Systems Constitutional: No Fever, No Chills Eyes: No Symptoms Ears, Nose, & Throat: No Symptoms Respiratory: Cough, Dyspnea, Wheezing Cardiac: No Chest Pain, No Edema, No Syncope Abdominal/Gastrointestinal: No Abdominal Pain, No Nausea, No Vomiting, No Diarrhea Genitourinary Symptoms: No Dysuria Musculoskeletal: No Back Pain, No Neck Pain Skin: No Rash Neurological: No Dizziness, No Focal Weakness, No Sensory Changes Psychological: No Symptoms Endocrine: No Symptoms All Other Systems: Reviewed and Negative - Past Medical History Pertinent Past Medical History: Yes Neurological History: No Pertinent History ENT History: No Pertinent History Cardiac History: Hypertension Respiratory History: Pneumonia Endocrine Medical History: Hypothyroidism Musculoskeletal History: No Pertinent History GI Medical History: GERD History: No Pertinent History Psycho-Social History: No Pertinent History Female Reproductive Disorders: No Pertinent History - Past Surgical History Past Surgical History: Yes Neuro Surgical History: No Pertinent History Cardiac: No Pertinent History Respiratory: No Pertinent History Gastrointestinal: Appendectomy, Cholecystectomy Musculoskeletal: Joint Replacement, Orthopedic Surgery Female Surgical History: Section Other Surgical History: Broken Arm, John/elbow replacement Right arm, left knee replacement. Squamous cells removed from cervix. - Social History Smoking Status: Former smoker Exposure to second hand smoke: No Drug Use: none Patient Lives Alone: No - Nursing Vital Signs Nursing Vital Signs: Initial Vital Signs Temperature 97.2 F 01/19/18 13:57 Pulse Rate 86 01/19/18 13:57 Respiratory Rate 24 01/19/18 13:57 Blood Pressure 125/58 01/19/18 13:57 O2 Sat by Pulse Oximetry 95 01/19/18 13:57 Pain Scale Pain Intensity 0 - Physical Exam General Appearance: no apparent distress, alert Eye Exam: PERRL/EOMI, eyes nml inspection Ears, Nose, Throat Exam: normal ENT inspection, TMs normal, pharynx normal, moist mucous membranes Neck Exam: normal inspection, non-tender, supple, full range of motion Respiratory Exam: normal breath sounds, lungs clear, No respiratory distress Cardiovascular Exam: regular rate/rhythm, normal heart sounds Gastrointestinal/Abdomen Exam: soft, No tenderness Back Exam: normal inspection, No CVA tenderness, No vertebral tenderness Extremity Exam: normal inspection, normal range of motion Neurologic Exam: alert, oriented x 3, cooperative, normal mood/affect, sensation nml, No motor deficits Skin Exam: normal color, warm, dry, No rash Lymphatic Exam: No adenopathy - Course Nursing assessment & vital signs reviewed: Yes EKG Interpreted by Me: Sinus Rhythm, NORMAL AXIS, NORMAL INTERVALS, Non- specific ST Changes - Radiology Exams Chest X-ray Interpretation: Interpreted by me, Reviewed by me, Other (RLL infiltrate is improved , some interstitial changes) Ordered Tests: Active Orders 24 hr Category Date Time Status Business Control Manager STAT Care 01/19/18 14:03 Active EKG-ER Only STAT Care 01/19/18 14:01 Active IV Insertion STAT Care 01/19/18 14:01 Active Pulse Oximetry (ED) STAT Care 01/19/18 14:01 Active CHEST 2 VIEWS (PA AND LAT) Stat Exams 01/19/18 14:02 Taken CBC W DIFF Stat Lab 01/19/18 14:30 Completed CMP Stat Lab 01/19/18 14:30 Completed D-DIMER QUANTITATION Stat Lab 01/19/18 14:30 Completed Lactic Acid Stat Lab 01/19/18 14:20 Completed NT PRO BNP Stat Lab 01/19/18 14:30 Completed TROPONIN Q3H Lab 01/19/18 14:15 Completed TROPONIN Q3H Lab 01/19/18 17:15 Ordered TROPONIN Q3H Lab 01/19/18 20:15 Ordered TROPONIN Q3H Lab 01/19/18 23:15 Ordered TROPONIN Q3H Lab 01/20/18 02:15 Ordered TSH, 3RD Generation Urgent Lab 01/19/18 14:15 Completed Peak Expiratory Flow Rate ONCE RT 01/19/18 14:12 Active Respiratory Nebulizer STAT RT 01/19/18 14:04 Active Respiratory Therapy Assessment DAILY RT 01/19/18 14:07 Active Medication Summary Generic Name Dose Route Start Last Admin Trade Name Freq PRN Reason Stop Dose Admin Sodium Chloride 1,000 mls @ 100 mls/hr 01/19/18 14:15 01/19/18 14:12 Sodium Chloride 0.9% 1000 Ml IV 02/18/18 14:14 100 mls/hr .Q10H MURTAZA Administration Discontinued Medications Generic Name Dose Route Start Last Admin Trade Name Freq PRN Reason Stop Dose Admin Albuterol/Ipratropium 3 ml 01/19/18 14:01 01/19/18 14:07 Duoneb 0.5-3 Mg/3 Ml Neb IH 01/19/18 14:02 3 ml STAT ONE Administration Albuterol/Ipratropium Confirm 01/19/18 14:03 Duoneb 0.5-3 Mg/3 Ml Neb Administered 01/19/18 14:04 Dose 3 ml IH .STK-MED ONE Methylprednisolone Sodium Succinate 125 mg 01/19/18 14:01 01/19/18 14:12 Solu-Medrol 125 Mg IV 01/19/18 14:02 125 mg STAT ONE Administration Methylprednisolone Sodium Succinate Confirm 01/19/18 14:10 Solu-Medrol 125 Mg Administered 01/19/18 14:11 Dose 125 mg .ROUTE .STK-MED ONE Lab/Rad Data: Laboratory Result Diagrams 01/19/18 14:30 01/19/18 14:30 Laboratory Results 01/19/18 01/19/18 01/19/18 Range/Units 14:30 14:30 14:30 WBC (4.0-10.5) K/mm3 RBC (4.1-5.4) M/mm3 Hgb (12.0-16.0) gm/dl Hct (35-47) % MCV (78-100) fl MCH (26-32) pg MCHC (32-36) g/dl RDW (11.5-14.0) % Plt Count (150-450) K/mm3 MPV (6-9.5) fl Gran % (36.0-66.0) % Eos # (Auto) (0-0.5) Absolute Lymphs (auto) (1.0-4.6) Absolute Monos (auto) (0.0-1.3) Lymphocytes % (24.0-44.0) % Monocytes % (0.0-12.0) % Eosinophils % (0.00-5.0) % Basophils % (0.0-0.4) % Absolute Granulocytes (1.4-6.9) Basophils # (0-0.4) D-Dimer 581 H* (215-500) ng/mL Sodium 142 (137-145) mmol/L Potassium 3.8 (3.5-5.1) mmol/L Chloride 106 (98-107) mmol/L Carbon Dioxide 26 (22-30) mmol/L Anion Gap 13.5 (5-15) MEQ/L BUN 14 (7-17) mg/dL Creatinine 0.79 (0.52-1.04) mg/dL Estimated GFR > 60.0 ML/MIN Glucose 126 H (74-106) mg/dL Lactic Acid (0.4-2.0) Calcium 9.5 (8.4-10.2) mg/dL Total Bilirubin 0.60 (0.2-1.3) mg/dL AST 22 (14-36) U/L ALT 18 (0-35) U/L Alkaline Phosphatase 84 (38-126) U/L Troponin I (0.000-0.034) ng/mL NT-Pro-B Natriuret Pep 230 (0-900) pg/mL Serum Total Protein 7.2 (6.3-8.2) g/dL Albumin 4.3 (3.5-5.0) g/dL TSH 3rd Generation (0.47-4.68) mIU/L Influenza Type A Ag NEGATIVE (NEGATIVE) Influenza Type B Ag NEGATIVE (NEGATIVE) RSV (PCR) NEGATIVE (Negative) 01/19/18 01/19/18 01/19/18 Range/Units 14:30 14:20 14:15 WBC 6.8 (4.0-10.5) K/mm3 RBC 4.37 (4.1-5.4) M/mm3 Hgb 13.5 (12.0-16.0) gm/dl Hct 41.5 (35-47) % MCV 95.0 (78-100) fl MCH 30.9 (26-32) pg MCHC 32.5 (32-36) g/dl RDW 13.4 (11.5-14.0) % Plt Count 270 (150-450) K/mm3 MPV 11.3 H (6-9.5) fl Gran % 61.6 (36.0-66.0) % Eos # (Auto) 0.31 (0-0.5) Absolute Lymphs (auto) 1.72 (1.0-4.6) Absolute Monos (auto) 0.55 (0.0-1.3) Lymphocytes % 25.2 (24.0-44.0) % Monocytes % 8.1 (0.0-12.0) % Eosinophils % 4.5 (0.00-5.0) % Basophils % 0.6 (0.0-0.4) % Absolute Granulocytes 4.21 (1.4-6.9) Basophils # 0.04 (0-0.4) D-Dimer (215-500) ng/mL Sodium (137-145) mmol/L Potassium (3.5-5.1) mmol/L Chloride (98-107) mmol/L Carbon Dioxide (22-30) mmol/L Anion Gap (5-15) MEQ/L BUN (7-17) mg/dL Creatinine (0.52-1.04) mg/dL Estimated GFR ML/MIN Glucose (74-106) mg/dL Lactic Acid 0.9 (0.4-2.0) Calcium (8.4-10.2) mg/dL Total Bilirubin (0.2-1.3) mg/dL AST (14-36) U/L ALT (0-35) U/L Alkaline Phosphatase (38-126) U/L Troponin I < 0.012 (0.000-0.034) ng/mL NT-Pro-B Natriuret Pep (0-900) pg/mL Serum Total Protein (6.3-8.2) g/dL Albumin (3.5-5.0) g/dL TSH 3rd Generation 1.700 (0.47-4.68) mIU/L Influenza Type A Ag (NEGATIVE) Influenza Type B Ag (NEGATIVE) RSV (PCR) (Negative) - Progress Progress: improved, re-examined Air Movement: good Progress Note: 01/19/18 15:10 d-dimer has improved to 500s from prior 800 since last admission in Nov. CXR RLL infiltrate also improved with normal WBC at this time. 01/19/18 15:16 pt has improved and is without symptoms now in ER and wishes to go home. explained results and limitations of testing performed including that although D -Dimer and infiltrate are decreased there still could be pathology and also including cardiac , and she chooses DC with out pt f/u over inhouse w/u and tx at this time and has the capacity to make that choice after our discussion of risks and benefits. 01/19/18 15:20 01/19/18 15:23 pt also prefers to hold off on antibiotics at this time since infiltrate is clearing and wbc normal and no fever. Blood Culture(s) Obtained: No Antibiotics given: No Counseled pt/family regarding: lab results, diagnosis, need for follow-up, rad results - Departure Time of Disposition: 15:49 Departure Disposition: Home Clinical Impression: improving RLL infiltrate, shortness of breath - resolved, improving D-Dimer Condition: Good Critical Care Time: No Referrals: EFRA GUTIERRES MD [Primary Care Provider] - Instructions: Asthma, Adult (DC), Shortness of Breath (Dyspnea) (DC) Additional Instructions: although the previous findings are improving, there still could be undetected problems developing , so it is important to followup with your dr and return if further symptoms meantime Prescriptions: Methylprednisolone Packet [Medrol Dosepack] 4 mg PO UD #30 packet
[2018-01-19] MEDS ORDERED: Sodium Chloride 0.9% 1000 ML 1,000 ML ONE (14:10)
[2018-01-19] MEDS ORDERED: solu-MEDROL 125 MG ONE (14:10)
[2018-01-19] MEDS ORDERED: Sodium Chloride 0.9% 1000 ML 1,000 ML IV SCH (14:15)
[2018-01-19 14:42] LABS: BASOPHIL % 0.6 % (0.0-0.4); Basophil (Absolute #) 0.04 (0-0.4); Eosinophil % 4.5 % (0.00-5.0); Eosinophil (Absolute #) 0.31 (0-0.5); Granulocyte Absolute (ANC) 4.21 (1.4-6.9); Granulocytes % 61.6 % (36.0-66.0); Hematocrit 41.5 % (35-47); Hemoglobin 13.5 gm/dl (12.0-16.0); Lymphocyte (Absolute #) 1.72 (1.0-4.6); Lymphocytes % 25.2 % (24.0-44.0); Mean Corpuscular Hemoglobin 30.9 pg (26-32); Mean Corpuscular Hgb Concent. 32.5 g/dl (32-36); Mean Platelet Volume 11.3 fl (6-9.5); Monocyte (Absolute #) 0.55 (0.0-1.3); Monocytes % 8.1 % (0.0-12.0); Platelet Count 270 K/mm3 (150-450); Red Blood Count 4.37 M/mm3 (4.1-5.4); Red Cell Distribution Width 13.4 % (11.5-14.0); White Blood Count 6.8 K/mm3 (4.0-10.5)
[2018-01-19 15:06] LABS: ALBUMIN 4.3 g/dL (3.5-5.0); ALKALINE PHOSPHATASE 84 U/L (38-126); ANION GAP 13.5 MEQ/L (5-15); BLOOD UREA NITROGEN 14 mg/dL (7-17); CHLORIDE 106 mmol/L (98-107); Calcium 9.5 mg/dL (8.4-10.2); Carbon Dioxide 26 mmol/L (22-30); Creatinine 1 0.79 mg/dL (0.52-1.04); Glucose 126 mg/dL (74-106); NT PRO BNP 230 pg/mL (0-900); Potassium 3.8 mmol/L (3.5-5.1); SGOT/AST 22 U/L (14-36); SGPT/ALT 18 U/L (0-35); SODIUM 142 mmol/L (137-145); Total Protein 7.2 g/dL (6.3-8.2)
[2018-01-19 15:09] LABS: INFLUENZA A NEGATIVE (NEGATIVE); INFLUENZA B NEGATIVE (NEGATIVE); RESPIRATORY SYNCTIAL VIRUS NEGATIVE (Negative)
[2018-01-19 15:28] LABS: TROPONIN < 0.012 ng/mL (0.000-0.034)
[2018-01-19 15:40] VITALS: BP 94/62; PULSE 71; O2SAT 94
--- NOTE | 2018-01-19 18:28 | XRAY ---
Indication: Short of breath. Comparison: December 25, 2017. PA/lateral chest again hyperinflated. Minimal lingular subsegmental atelectasis/scarring. No focal infiltrate, consolidation, or large effusion. Heart and mediastinal structures within normal limits. Bony thorax intact. Impression: Nonacute hyperinflated chest with chronic features.
== END 2018-01-19 16:14 | disposition home or self-care (01) ==
LOC: ED 13:54
DX: R91.8 Other nonspecific abnormal finding of lung field (principal); R06.02 Shortness of breath; Z79.899 Other long term (current) drug therapy; I10 Essential (primary) hypertension
CPT/HCPCS: 36000; 36415; 71046; 80053; 83605; 83880; 84443; 84484; 85025; 85379; 87631; 93005; 93041; 94150; 94640; 96360; 96361; 96374; 99284; J2930; A9270-GY

== ENCOUNTER 2022-11-08 07:34 | Emergency (ER) | payer BC, SELFPAY ==
[2022-11-08 07:49] VITALS: RESP 20; TEMP 97.2
--- NOTE | 2022-11-08 08:07 | ERPHSYRPT ---
- History of Present Illness Time Seen by Provider: 11/08/22 07:50 Source: patient Exam Limitations: no limitations Patient Subjective Stated Complaint: PT states "My right knee has been locking up and it has been popping but today I went to work and my right knee just gave out and I fell getting into my chair and my leg went under and behind me." Triage Nursing Assessment: Pt presented alert and oriented X 3, skin pwd. PT ambulates with a limp. Pt right knee not swollen, extremely tender. Physician History: Patient is a 56-year-old white female who presents with a complaint of her right knee locking up lately and popping a lot lately. She went to work today to sit in her chair and her leg right knee gave out causing her to fall onto her leg and her leg has been painful since. She is able to walk but only with a limp. She has had a knee replacement on the left in the past. Method of Injury: fell Occurred: just prior to arrival, this morning Quality: aching Severity of Pain-Max: severe Severity of Pain-Current: moderate Lower Extremities Pain: knee: right Modifying Factors: Improves With: movement Associated Symptoms: popping sensation Allergies/Adverse Reactions: latex Adverse Reaction (Verified 01/19/18 14:04) IV DYE Allergy (Severe, Uncoded 12/25/17 18:33) Home Medications: Levothyroxine Sodium 50 Mcg [Synthroid 50 Mcg] 50 mcg PO DAILY 02/26/13 [History] Albuterol Sulfate Mdi [ALBUTEROL/Proair Hfa MDI] 2 inh PO Q4-6HPRN PRN 12/25/17 [History] Aspirin EC 81 mg [Ecotrin 81 mg] 81 mg PO DAILY 12/25/17 [History] Carvedilol 3.125 mg [Coreg 3.125 MG] 3.125 mg PO BID 12/25/17 [History] Hydrocodone/APAP 5/325 [[place] 5/325 mg] 0.5 tab PO DAILY 12/25/17 [History] Omeprazole 20 MG [Prilosec 20 mg] 20 mg PO DAILY 12/25/17 [History] lisinopriL [Zestril] 2.5 mg PO DAILY 12/25/17 [History] Hx Tetanus, Diphtheria Vaccination/Date Given: No Hx Influenza Vaccination/Date Given: No Hx Pneumococcal Vaccination/Date Given: No Immunizations Up to Date: No Travel Risk - International Travel Have you traveled outside of the country in past 3 weeks: No - Coronavirus Screening Are you exhibiting any of the following symptoms?: No Close contact with a COVID-19 positive Pt in past 14-21 Days: No - Vaccine Status Have you recieved a Covid-19 vaccination: No - Review of Systems Constitutional: No Fever, No Chills Eyes: No Symptoms Ears, Nose, & Throat: No Symptoms Respiratory: No Cough, No Dyspnea Cardiac: No Chest Pain, No Edema, No Syncope Abdominal/Gastrointestinal: No Abdominal Pain, No Nausea, No Vomiting, No Diarrhea Genitourinary Symptoms: No Dysuria Musculoskeletal: Fall, Joint Pain, No Back Pain, No Neck Pain Skin: No Rash Neurological: No Dizziness, No Focal Weakness, No Sensory Changes Psychological: No Symptoms Endocrine: No Symptoms All Other Systems: Reviewed and Negative - Past Medical History Pertinent Past Medical History: Yes Neurological History: No Pertinent History ENT History: No Pertinent History Cardiac History: Hypertension Respiratory History: Pneumonia Endocrine Medical History: Hypothyroidism Musculoskeletal History: No Pertinent History GI Medical History: GERD History: No Pertinent History Psycho-Social History: No Pertinent History Female Reproductive Disorders: No Pertinent History - Past Surgical History Past Surgical History: Yes Neuro Surgical History: No Pertinent History Cardiac: No Pertinent History Respiratory: No Pertinent History Gastrointestinal: Appendectomy, Cholecystectomy Musculoskeletal: Joint Replacement, Orthopedic Surgery Female Surgical History: Section Other Surgical History: Broken Arm, John/elbow replacement Right arm, left knee replacement. Squamous cells removed from cervix. - Social History Smoking Status: Former smoker Exposure to second hand smoke: No Drug Use: none Patient Lives Alone: No - Nursing Vital Signs Nursing Vital Signs: Initial Vital Signs Temperature 97.2 F 11/08/22 07:42 Pulse Rate 68 11/08/22 07:42 Respiratory Rate 20 11/08/22 07:42 Blood Pressure 128/56 11/08/22 07:42 O2 Sat by Pulse Oximetry 97 11/08/22 07:42 Pain Scale Pain Intensity 3 - Physical Exam General Appearance: mild distress, alert Eyes, Ears, Nose, Throat Exam: moist mucous membranes Neck Exam: non-tender, supple Cardiovascular/Respiratory Exam: chest non-tender, normal breath sounds, regular rate/rhythm, no respiratory distress Gastrointestinal/Abdominal Exam: non-tender, guarding Back Exam: normal inspection, No vertebral tenderness Hips Exam: bilateral: non-tender, normal inspection, normal range of motion Legs Exam: bilateral leg: non-tender, normal inspection, normal range of motion Knees Exam: right knee: pain, soft tissue tenderness, swelling Ankle Exam: bilateral ankle: non-tender, normal inspection, normal range of motion Foot Exam: bilateral foot: non-tender, normal inspection, normal range of motion Neuro/Tendon Exam: normal sensation, normal motor functions Mental Status Exam: alert, oriented x 3, cooperative Skin Exam: normal color, warm, dry SpO2 Interpretation: normal SpO2: 97 O2 Delivery: Room Air - Course Nursing assessment & vital signs reviewed: Yes - Radiology Exams Right Knee X-ray Interpretation: Reviewed by me Ordered Tests: Active Orders 24 hr Category Date Time Status Immobilizer STAT Care 11/08/22 09:27 Ordered LOWER EXTREMITY WO CONTRAST [CT] Stat Exams 11/08/22 07:49 Completed - Progress Progress: unchanged Medical Desision Making - Diagnostic Testing Radiological Interpretation: Reviewed by me - Risk of complications Low Risk: Low risk of morbidity from additional dx testing or treatment - Departure Departure Disposition: Home Clinical Impression: Internal derangement of right knee Condition: Stable Critical Care Time: No Referrals: EFRA GUTIERRES MD [Primary Care Provider] - Follow up/PCP as directed Instructions: Knee Pain (DC) Prescriptions: Diclofenac Sodium 50 mg [Voltaren 50 mg] 50 mg PO TID 10 Days #30 tablet
--- NOTE | 2022-11-08 08:54 | XRAY ---
CLINICAL HISTORY:rightknee gave out, pain COMPARISON:None. TECHNIQUE:Thin axial images of the right knee joint were obtained along with coronal and sagittal reconstructions. FINDINGS: Mildly reduced bone density noted. Degenerative changes with osteophyte formation is noted at patellofemoral, tibiofemoral articulations, and proximal tibiofibular joint. Tibial spiking noted Reduced joint space with subchondral sclerosis is noted at the medial tibiofemoral compartment. No knee joint effusion identified. The lateral tibiofemoral and superior tibiofibular joint spaces are normal. No evidence of lytic or sclerotic bone lesion. No fracture or dislocation seen. IMPRESSION: Osteopenia. 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 No fracture or dislocation seen. Electronically Signed by: Jai Clay MD. (11/08/2022 07:53:11 [employer])
[2022-11-08 09:16] VITALS: BP 93/52; PULSE 63
[2022-11-08 09:31] VITALS: O2SAT 97
== END 2022-11-08 09:50 | disposition home or self-care (01) ==
LOC: ED 07:34
DX: M23.91 Unspecified internal derangement of right knee (principal); M79.604 Pain in right leg; I10 Essential (primary) hypertension; Z79.899 Other long term (current) drug therapy; Z28.310 Unvaccinated for COVID-19
CPT/HCPCS: 73700; 99283; L1830

== ENCOUNTER 2024-12-09 19:02 | Emergency (ER) | payer BC ==
[2024-12-09 19:17] VITALS: TEMP 98
--- NOTE | 2024-12-09 19:19 | ERPHSYRPT ---
- History of Present Illness Time Seen by Provider: 12/09/24 19:08 Historian: patient Exam Limitations: no limitations Patient Subjective Stated Complaint: while cooking dinner approx 1630 pt reports sudden onset of left-sided chest pain that felt like she was getting shocked, pt states the pain radiates to her left breast, states she also felt short of breath and lightheaded. pt reports upon arrival the pain has subsided Triage Nursing Assessment: pt is aox3, pupils perrl, afebrile, resps easy and non labored, cap refill < 3 seconds, radial pulses strong and equal, pt skin pale warm dry. Physician History: 58-year-old female presents to the emergency room with sudden onset chest pain that occurred around 430 while she was cooking patient denies any shortness of breath patient reports her pain was radiating up and down her chest denies any nausea vomiting diarrhea denies abdominal pain or back pain denies any flank pain denies any urinary symptoms denies any rash patient reports she has had 3 prior heart attacks she has had an ablation she does follow-up with cardiology patient reports she is pain-free at this moment now in ED for further eval Timing/Duration: today Activities at Onset: none Location: central Severity of Pain-Max: mild Severity of Pain-Current: mild Modifying Factors: Worsens With: coughing, defecating, lying down, morphine Associated Symptoms: palpitations, No denies symptoms, No vomiting, No abdominal pain, No shortness of breath, No fever, No fatigue Prior Chest Pain/Cardiac Workup: heart attack Aspirin Treatment Today: no aspirin today Allergies/Adverse Reactions: latex Adverse Reaction (Verified 12/09/24 19:17) IV DYE Allergy (Severe, Uncoded 12/09/24 19:17) Home Medications: Apixaban [Eliquis 2.5 mg Tablet] 5 mg PO BID 12/09/24 [History] Atorvastatin Calcium 40 mg PO DAILY 12/09/24 [History] Carvedilol [Coreg ] 6.25 mg PO BID 12/09/24 [History] Fluoxetine HCl 10 mg [Prozac 10 mg] 10 mg PO DAILY 12/09/24 [History] Isosorbide Mononitrate [Isosorbide Mononitrate ER] 60 mg PO DAILY 12/09/24 [History] Levothyroxine Sodium [Synthroid] 50 mcg PO DAILY 12/09/24 [History] Omeprazole 20 mg PO DAILY 12/09/24 [History] Oxycodone HCl/Acetaminophen [Oxycodone-Acetaminophen 5-325] 1 each PO Q4-6HPRN PRN 12/09/24 [History] Hx Tetanus, Diphtheria Vaccination/Date Given: No Hx Influenza Vaccination/Date Given: Yes Hx Pneumococcal Vaccination/Date Given: Yes Immunizations Up to Date: No Travel Risk - International Travel Have you traveled outside of the country in past 3 weeks: No - Emerging Infectious Disease Are you exhibiting symptoms associated with any current EIDs: No - Review of Systems Constitutional: No Fever, No Chills Eyes: No Symptoms Ears, Nose, & Throat: No Symptoms Respiratory: No Cough, No Dyspnea Cardiac: Chest Pain, No Edema, No Syncope Abdominal/Gastrointestinal: No Abdominal Pain, No Nausea, No Vomiting, No Diarrhea Genitourinary Symptoms: No Dysuria Musculoskeletal: No Back Pain, No Neck Pain Skin: No Rash Neurological: No Dizziness, No Focal Weakness, No Sensory Changes Psychological: No Symptoms Endocrine: No Symptoms All Other Systems: Reviewed and Negative - Past Medical History Pertinent Past Medical History: Yes Neurological History: No Pertinent History ENT History: No Pertinent History Cardiac History: Arrhythmia, Hypertension Respiratory History: Pneumonia Endocrine Medical History: Hypothyroidism Musculoskeletal History: No Pertinent History GI Medical History: GERD History: No Pertinent History Psycho-Social History: No Pertinent History Female Reproductive Disorders: No Pertinent History - Past Surgical History Past Surgical History: Yes Neuro Surgical History: No Pertinent History Cardiac: Cardiac Catheterization, Other Respiratory: No Pertinent History Gastrointestinal: Appendectomy, Cholecystectomy Musculoskeletal: Joint Replacement, Orthopedic Surgery Female Surgical History: Section Other Surgical History: Broken Arm, John/elbow replacement Right arm, left knee replacement. Squamous cells removed from cervix. cardiac ablation - Dr Glynn. 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 - Social History Smoking Status: Former smoker Exposure to second hand smoke: No Drug Use: none - Social Determinants of Health Will the patient participate in the screening: Yes Do you worry about a steady place to live?: No Do you have any problems with any of the following?: No known problems In the past 12 months,have you had to go without utilities?: No Transportation Issues: No Has anyone in your support network made you feel unsafe?: No Have you or anyone in your house had to go w/o enough food: No - Nursing Vital Signs Nursing Vital Signs: Initial Vital Signs Pulse Rate 60 12/09/24 19:07 Respiratory Rate 16 12/09/24 19:07 Blood Pressure 134/77 12/09/24 19:07 O2 Sat by Pulse Oximetry 96 12/09/24 19:07 Pain Scale Pain Intensity 2 - Physical Exam General Appearance: no apparent distress, alert Eye Exam: PERRL/EOMI, eyes nml inspection Ears, Nose, Throat Exam: normal ENT inspection, moist mucous membranes Neck Exam: normal inspection, non-tender, supple, full range of motion Respiratory Exam: normal breath sounds, lungs clear, No respiratory distress Cardiovascular Exam: regular rate/rhythm, normal heart sounds Gastrointestinal/Abdomen Exam: soft, No tenderness, No mass Back Exam: normal inspection, No CVA tenderness, No vertebral tenderness Extremity Exam: normal inspection, normal range of motion Neurologic Exam: alert, oriented x 3, cooperative, normal mood/affect, sensation nml, No motor deficits Skin Exam: normal color, warm, dry SpO2: 96 - Course Nursing assessment & vital signs reviewed: Yes EKG Interpreted by Me: RATE, Sinus Rhythm (rate 65), NORMAL AXIS, Non-specific ST Changes (no STEMI) Ordered Tests: Active Orders 24 hr Category Date Time Status Caseworker Protective Services STAT Care 12/09/24 19:17 Completed EKG-ER Only STAT Care 12/09/24 19:17 Completed IV Insertion STAT Care 12/09/24 19:17 Completed Pulse Oximetry (ED) STAT Care 12/09/24 19:17 Completed CHEST 1 VIEW (PORTABLE) Stat Exams 12/09/24 19:17 Taken CBC W DIFF Stat Lab 12/09/24 19:28 Completed CK-Creatinine Phosphokinase Stat Lab 12/09/24 19:28 Completed CMP Stat Lab 12/09/24 19:28 Completed D-DIMER QUANTITATIVE Stat Lab 12/09/24 19:28 Completed NT PRO BNPII Stat Lab 12/09/24 19:28 Completed TROPONIN Q3H Lab 12/09/24 19:28 Completed TROPONIN Q3H Lab 12/09/24 22:35 Completed Lab/Rad Data: Laboratory Result Diagrams 12/09/24 19:28 12/09/24 19:28 Laboratory Results 12/09/24 12/09/24 12/09/24 Range/Units 22:35 19:28 19:28 WBC (3.98-10.04) x10^3/uL RBC (3.93-5.22) x10^6/uL Hgb (11.2-15.7) g/dL Hct (34.1-44.9) % MCV (79.4-94.8) fL MCH (25.6-32.2) pg MCHC (32.2-35.5) g/dL RDW (11.7-14.4) % Plt Count (182-369) x10^3/uL MPV (9.4-12.3) fL Gran % (34.0-71.1) % Immature Gran % (Auto) (0.001-0.429) % Nucleat RBC Rel Count (0.00-0.2) % Eos # (Auto) (0.04-0.36) x10^3/uL Immature Gran # (Auto) (0.001-0.031) x10^3u/L Absolute Lymphs (auto) (1.18-3.74) x10^3/uL Absolute Monos (auto) (0.24-0.86) x10^3/uL Absolute Nucleated RBC (0.00-0.012) x10^3u/L Lymphocytes % (19.3-51.7) % Monocytes % (4.7-12.5) % Eosinophils % (0.7-5.8) % Basophils % (0.1-1.2) % Absolute Granulocytes (1.56-6.13) x10^3/uL Basophils # (0.01-0.08) x10^3/uL D-Dimer 0.31 (0.0-0.50) mg/L Sodium (135-145) mmol/L Potassium (3.5-5.1) mmol/L Chloride (98-107) mmol/L Carbon Dioxide (22-30) mmol/L Anion Gap (5-15) MEQ/L BUN (7-17) mg/dL Creatinine (0.52-1.04) mg/dL Estimated GFR ML/MIN Glucose (74-106) mg/dL Calcium (8.4-10.2) mg/dL Total Bilirubin (0.2-1.3) mg/dL AST (14-36) U/L ALT (0-35) U/L Alkaline Phosphatase (38-126) U/L Creatine Kinase (30-135) U/L Troponin I < 0.012 < 0.012 (0.000-0.033) ng/mL NT-Pro-B Natriuret Pep 327 (<300) pg/mL Serum Total Protein (6.3-8.2) g/dL Albumin (3.5-5.0) g/dL 12/09/24 12/09/24 Range/Units 19:28 19:28 WBC 8.3 (3.98-10.04) x10^3/uL RBC 4.00 (3.93-5.22) x10^6/uL Hgb 12.2 (11.2-15.7) g/dL Hct 38.7 (34.1-44.9) % MCV 96.8 H (79.4-94.8) fL MCH 30.5 (25.6-32.2) pg MCHC 31.5 L (32.2-35.5) g/dL RDW 14.0 (11.7-14.4) % Plt Count 260 (182-369) x10^3/uL MPV 10.6 (9.4-12.3) fL Gran % 55.1 (34.0-71.1) % Immature Gran % (Auto) 0.1 (0.001-0.429) % Nucleat RBC Rel Count 0.0 (0.00-0.2) % Eos # (Auto) 0.24 (0.04-0.36) x10^3/uL Immature Gran # (Auto) 0.01 (0.001-0.031) x10^3u/L Absolute Lymphs (auto) 2.47 (1.18-3.74) x10^3/uL Absolute Monos (auto) 0.91 H (0.24-0.86) x10^3/uL Absolute Nucleated RBC 0.00 (0.00-0.012) x10^3u/L Lymphocytes % 29.8 (19.3-51.7) % Monocytes % 11.0 (4.7-12.5) % Eosinophils % 2.9 (0.7-5.8) % Basophils % 1.1 (0.1-1.2) % Absolute Granulocytes 4.57 (1.56-6.13) x10^3/uL Basophils # 0.09 H (0.01-0.08) x10^3/uL D-Dimer (0.0-0.50) mg/L Sodium 140 (135-145) mmol/L Potassium 4.7 (3.5-5.1) mmol/L Chloride 106 (98-107) mmol/L Carbon Dioxide 26 (22-30) mmol/L Anion Gap 12.8 (5-15) MEQ/L BUN 17 (7-17) mg/dL Creatinine 0.82 (0.52-1.04) mg/dL Estimated GFR 81.8 ML/MIN Glucose 89 (74-106) mg/dL Calcium 9.3 (8.4-10.2) mg/dL Total Bilirubin 0.30 (0.2-1.3) mg/dL AST 23 (14-36) U/L ALT 14 (0-35) U/L Alkaline Phosphatase 111 (38-126) U/L Creatine Kinase 52 (30-135) U/L Troponin I (0.000-0.033) ng/mL NT-Pro-B Natriuret Pep (<300) pg/mL Serum Total Protein 7.0 (6.3-8.2) g/dL Albumin 4.2 (3.5-5.0) g/dL - Departure Departure Disposition: Home Clinical Impression: Chest pain Qualifiers: Chest pain type: unspecified Qualified Code(s): R07.9 - Chest pain, unspecified Condition: Stable Critical Care Time: No Referrals: EFRA GUTIERRES MD [Primary Care Provider, INTERNAL MEDICINE] - Follow up/PCP as directed FABRICIO ORO MD [CONSULTING PHYSICIAN, CARDIOLOGY] - Follow up/PCP as directed Instructions: Atypical Chest Pain, Chest Pain (DC)
[2024-12-09 19:29] LABS: BASOPHIL % 1.1 % (0.1-1.2); Basophil (Absolute #) 0.09 x10^3/uL (0.01-0.08); Eosinophil (Absolute #) 0.24 x10^3/uL (0.04-0.36); Hematocrit 38.7 % (34.1-44.9); Hemoglobin 12.2 g/dL (11.2-15.7); IMMATURE GRAN # 0.01 x10^3u/L (0.001-0.031); IMMATURE GRAN % 0.1 % (0.001-0.429); Lymphocyte (Absolute #) 2.47 x10^3/uL (1.18-3.74); Mean Corpuscular Hemoglobin 30.5 pg (25.6-32.2); Mean Corpuscular Hgb Concent. 31.5 g/dL (32.2-35.5); Monocyte (Absolute #) 0.91 x10^3/uL (0.24-0.86); NUCLEATED RBC # 0.00 x10^3u/L (0.00-0.012); NUCLEATED RBC % 0.0 % (0.00-0.2); Platelet Count 260 x10^3/uL (182-369); Red Blood Count 4.00 x10^6/uL (3.93-5.22); White Blood Count 8.3 x10^3/uL (3.98-10.04)
[2024-12-09 19:42] LABS: CK-Creatinine Phosphokinase 52.0 U/L (30-135); Calcium 9.3 mg/dL (8.4-10.2); Carbon Dioxide 26.0 mmol/L (22-30); Creatinine 1 0.82 mg/dL (0.52-1.04); EST GLOMERULAR FILTRATION RATE 81.8 ML/MIN; Glucose 89.0 mg/dL (74-106); Potassium 4.7 mmol/L (3.5-5.1); SGOT/AST 23.0 U/L (14-36); SGPT/ALT 14.0 U/L (0-35); Total Protein 7.0 g/dL (6.3-8.2)
[2024-12-09 19:54] LABS: NT PRO BNPII 327 pg/mL (<300); TROPONIN < 0.012 ng/mL (0.000-0.033)
[2024-12-09 21:11] VITALS: PULSE 59
[2024-12-09 23:03] VITALS: BP 110/43; RESP 15
[2024-12-10 06:32] VITALS: O2SAT 96
--- NOTE | 2024-12-10 08:37 | XRAY ---
Indication: Chest pain. Comparison: January 19, 2018 Portable chest remains hyperinflated and clear. Heart not enlarged. Bony thorax intact again with mild degenerative changes. No new/acute findings.
== END 2024-12-09 23:10 | disposition home or self-care (01) ==
LOC: ED 19:02
DX: R07.9 Chest pain, unspecified (principal); I10 Essential (primary) hypertension; Z79.01 Long term (current) use of anticoagulants; Z79.891 Long term (current) use of opiate analgesic; Z79.899 Other long term (current) drug therapy

== ENCOUNTER 2025-01-09 10:53 | Emergency (ER) | payer BC ==
[2025-01-09 11:05] VITALS: TEMP 97.1
[2025-01-09 11:37] VITALS: O2SAT 94
--- NOTE | 2025-01-09 11:37 | ERPHSYRPT ---
- History of Present Illness Time Seen by Provider: 01/09/25 11:29 Source: patient Exam Limitations: no limitations Patient Subjective Stated Complaint: pt states she fell on her bottom left side Triage Nursing Assessment: PT ARRIVES TO THE ED VIA PRIVATE VEHICLE WITH . PT IS ABLE TO AMBULATE INTO THE ED WITH A STAND BY ASSIST AND IS ABLE TO GET HERSELF INTO THE ER COT. PT IS ALERT AND ORIENTED, DYSPNEA WITH EXERTION NOTED, PULSES PRESENT AND EQUAL BILATERALLY. PT STATES THIS MORNING SHE WENT TO MAKE SURE HER GRANDKIDS WERE UP AND READY AT THEIR BABYSITTERS, WHEN SHE ARRIVED SHE SLIPPED ON HIS HARDWOOD ORTIZ AND FELL ONTO HER BOTTOM AND LEFT SIDE. PT STATES THIS OCCURED AT 0600. PT STATES THAT WHEN SHE TAKES A BREATH IT MAKES THE PAIN WORSE AND RATES THIS PAIN A 6/10. PT ALSO STATES THAT THE PAIN RADIATES TO HER LEFT HIP. PT TOOK ONE OF HER PAIN MEDICATIONS AT HOME (OXYCODONE 5 MG) AND STATES THIS DID GIVE HER RELIEF WELL RESTING AND NOT PERFORMING DAILY ACTIVITIES. PT IS TENDER TO PALPATION ON THE LEFT SIDE, MIDDLE OF HER BACK AND THERE IS BRUISING PRESENT WELL. PT TYPICALLY GETS AROUND WITH A CANE BUT THIS CANE IS CURRENTLY BEING WORKED ON SO SHE HAS BEEN AMBULATING WITHOUT THE HELP OF ANYTHING. Physician History: Patient is a 59-year-old female presents to our ED for evaluation of pain to her left lower posterior ribs. Patient states she slipped on a hardwood floor onto her back. Injury occurred on Tuesday. Patient states the area has been very sore. Pain worse with movement palpation and any motion of her ribs including breathing. Pain radiates downward to her left iliac crest and left lower flank. Patient took oxycodone 5 mg at home. This improved her pain somewhat. Patient declined additional pain medication. No BHT or LOC. No neck pain. Cervical spine cleared clinically. The fall was mechanical and not associated with any neuro or cardiovascular symptomology. Patient voices no other complaints or concerns at this time. Portions of this note were created with voice recognition technology. There may be grammatical, spelling, punctuation or sound alike errors Timing/Duration: day(s) (2 days ago) Severity: moderate Modifying Factors: Improves With: movement Associated Symptoms: denies symptoms Allergies/Adverse Reactions: latex Adverse Reaction (Verified 01/09/25 11:05) IV DYE Allergy (Severe, Uncoded 01/09/25 11:05) Home Medications: Apixaban [Eliquis 2.5 mg Tablet] 5 mg PO BID 12/09/24 [History] Atorvastatin Calcium 40 mg PO DAILY 12/09/24 [History] Carvedilol [Coreg ] 6.25 mg PO BID 12/09/24 [History] Fluoxetine HCl 10 mg [Prozac 10 mg] 10 mg PO DAILY 12/09/24 [History] Isosorbide Mononitrate [Isosorbide Mononitrate ER] 60 mg PO DAILY 12/09/24 [History] Levothyroxine Sodium [Synthroid] 50 mcg PO DAILY 12/09/24 [History] Omeprazole 20 mg PO DAILY 12/09/24 [History] Oxycodone HCl/Acetaminophen [Oxycodone-Acetaminophen 5-325] 1 each PO Q4-6HPRN PRN 12/09/24 [History] Albuterol Sulfate [Albuterol Sulfate Hfa] 8.5 gm IH Q6HPRN PRN 01/09/25 [History] Buprenorphine HCl [Belbuca] 600 mcg BC Q12H PRN PRN 01/09/25 [History] Fluticasone Furoate [Arnuity Ellipta] 100 mcg IH Q4-6HPRN PRN 01/09/25 [History] Nitroglycerin 0.4 mg Tablet [Nitrostat 0.4 MG Tablet] 0.4 mg SL Q5MIN PRN MR X 3 PRN 01/09/25 [History] Hx Tetanus, Diphtheria Vaccination/Date Given: No Hx Influenza Vaccination/Date Given: No Hx Pneumococcal Vaccination/Date Given: No Immunizations Up to Date: Yes Travel Risk - International Travel Have you traveled outside of the country in past 3 weeks: No - Emerging Infectious Disease Are you exhibiting symptoms associated with any current EIDs: No - Review of Systems Constitutional: No Fever, No Chills Eyes: No Symptoms Ears, Nose, & Throat: No Symptoms Respiratory: No Cough, No Dyspnea Cardiac: No Chest Pain, No Edema, No Syncope Abdominal/Gastrointestinal: No Abdominal Pain, No Nausea, No Vomiting, No Diarrhea Genitourinary Symptoms: No Dysuria Musculoskeletal: No Back Pain, No Neck Pain Skin: No Rash Neurological: No Dizziness, No Focal Weakness, No Sensory Changes Psychological: No Symptoms Endocrine: No Symptoms All Other Systems: Reviewed and Negative - Past Medical History Pertinent Past Medical History: Yes Neurological History: No Pertinent History ENT History: No Pertinent History Cardiac History: Angina, Arrhythmia, Hypertension Respiratory History: Pneumonia Endocrine Medical History: Hypothyroidism Musculoskeletal History: No Pertinent History GI Medical History: GERD History: No Pertinent History Psycho-Social History: No Pertinent History Female Reproductive Disorders: No Pertinent History - Past Surgical History Past Surgical History: Yes Neuro Surgical History: No Pertinent History Cardiac: Cardiac Catheterization, Other Respiratory: No Pertinent History Gastrointestinal: Appendectomy, Cholecystectomy Genitourinary: No Pertinent History Musculoskeletal: Joint Replacement, Orthopedic Surgery Female Surgical History: Section Other Surgical History: Broken Arm, John/elbow replacement Right arm, left knee replacement. Squamous cells removed from cervix. cardiac ablation - Dr Glynn. 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 - Social History Smoking Status: Never smoker Exposure to second hand smoke: No Drug Use: none - Social Determinants of Health Will the patient participate in the screening: Yes Do you worry about a steady place to live?: No Do you have any problems with any of the following?: No known problems In the past 12 months,have you had to go without utilities?: No Transportation Issues: No Has anyone in your support network made you feel unsafe?: No Have you or anyone in your house had to go w/o enough food: No - Nursing Vital Signs Nursing Vital Signs: Initial Vital Signs Temperature 97.1 F 01/09/25 11:01 Pulse Rate 62 01/09/25 11:01 Respiratory Rate 19 01/09/25 11:01 Blood Pressure 117/58 01/09/25 11:01 O2 Sat by Pulse Oximetry 94 L 01/09/25 11:01 Pain Scale Pain Intensity 6 - Physical Exam General Appearance: no apparent distress, alert Eye Exam: PERRL/EOMI, eyes nml inspection Ears, Nose, Throat Exam: normal ENT inspection, moist mucous membranes Neck Exam: normal inspection, full range of motion Respiratory Exam: normal breath sounds, lungs clear, No respiratory distress Cardiovascular Exam: regular rate/rhythm, normal heart sounds, normal peripheral pulses Gastrointestinal/Abdomen Exam: soft, normal bowel sounds, No tenderness, No mass Back Exam: normal inspection, normal range of motion, other (Bruising and tenderness to the left back near the left posterolateral ribs down into the left iliac crest and left lower flank), No CVA tenderness, No vertebral tenderness Extremity Exam: normal inspection, normal range of motion, pelvis stable Neurologic Exam: alert, oriented x 3, cooperative, normal mood/affect, sensation nml, No motor deficits Skin Exam: normal color, warm, dry, No rash Lymphatic Exam: No adenopathy SpO2 Interpretation: normal SpO2: 94 O2 Delivery: Room Air - Course Nursing assessment & vital signs reviewed: Yes - CT Exams Abdomen/Pelvis CT Interpretation: Tele-radiologist Report (Cardiomegaly, hiatal hernia, diverticulosis, fecal stasis no acute intra-abdominal or pelvic abnormalities) Ordered Tests: Active Orders 24 hr Category Date Time Status ABDOMEN AND PELVIS W/0 CONTRAS [CT] Stat Exams 01/09/25 11:28 Completed - Progress Progress: improved Progress Note: 59-year-old female presents to our ED post fall. Physical exam reveals tenderness to her left posterior ribs. CT scan negative for fracture or dislocation. Patient declined pain medication. Patient reassessed. Patient resting comfortably. Patient states he is ready for discharge. She voices no other complaints or concerns at this time. Portions of this note were created with voice recognition technology. There may be grammatical, spelling, punctuation or sound alike errors History obtained from patient and who is at the bedside. Differential differential diagnosis includes rib fracture rib contusion, soft tissue contusion hematoma Complexity of problems addressed is moderate acute complicated. No critical care time. Complexity of data reviewed and analyzed is moderate. Test ordered chest reviewed results analyzed and correlated clinically with history and physical exam. Risk of complication and or risk of morbidity/mortality of patient management is low. Vital stable. Time spent to discharge patient is approximately 15 minutes. Plan of care established for shared decision making. No social determinants of health present to impede follow-up. Portions of this note were created with voice recognition technology. There may be grammatical, spelling, punctuation or sound alike errors 01/10/25 01:19 Counseled pt/family regarding: diagnosis, need for follow-up, rad results - Departure Departure Disposition: Home Clinical Impression: Fall, Rib contusion, Contusion, flank, Cardiomegaly, Hiatal hernia, Diverticulosis, Fecal stasis Condition: Stable Critical Care Time: No Referrals: BHAVIK,EFRA, MD [Primary Care Provider, INTERNAL MEDICINE] - Follow up/PCP as directed Instructions: Preventing falls - ED discharge instructions Additional Instructions: Discharge/Care Plan BRISA ARZATE was seen on 01/09/25 in the Emergency Room. The patient was counseled regarding Diagnosis,Lab results, Imaging studies, need for follow up and when to return to the Emergency Room. Prescriptions given: Discharge Note I have spoken with the patient and/or caregivers. I have explained the patient's condition, diagnosis and treatment plan based on the information available to me at this time. I have answered the patient's and/or caregiver's questions and addressed any concerns. The patient and/or caregivers have as good understanding of the patient's diagnosis, condition and treatment plan as can be expected at this point. The vital signs have been stable. The patient's condition is stable and appropriate for discharge from the emergency department. The patient will pursue further outpatient evaluation with the primary care physician or other designated or consulting physician as outlined in the discharge instructions. The patient and/or caregivers are agreeable to this plan of care and follow-up instructions have been explained in detail. The patient and/or caregivers have received these instruction. The patient/and or caregivers are aware that any significant change in condition or worsening of symptoms should prompt an immediate return to this or the closest emergency department or call 911.
--- NOTE | 2025-01-09 13:13 | XRAY ---
Indication: Pain following fall. Multiple contiguous axial images obtained through the abdomen and pelvis without contrast. Comparison: February 26, 2013 Lung bases again demonstrates minimal bibasilar subsegmental atelectasis/scarring. No infiltrate, effusion, or pneumothorax. Heart is now borderline enlarged. New small hiatal hernia. Noncontrasted stomach and bowel loops appear nonobstructed. There is now mild diffuse scattered colonic fecal debris. Again descending and sigmoid diverticulosis without diverticulitis. Interval cholecystectomy. No free fluid/air. Remaining liver, pancreas, spleen, adrenal glands, kidneys, ureters, bladder, and uterus are unremarkable for noncontrast exam. Again minimal aortoiliac calcifications without AAA. Osseous structures intact with now minimal/mild multilevel thoracolumbar degenerative spondylosis and mild degenerative changes both hips. Impression: 1. New borderline cardiomegaly, small hiatal hernia, mild diffuse colonic fecal stasis, and chronic bony findings. 2. Again incidental colonic diverticulosis and arteriosclerotic disease. 3. No acute intra-abdominal/pelvic abnormalities on this noncontrast exam.
[2025-01-09 13:26] VITALS: BP 111/76; PULSE 80; RESP 16
== END 2025-01-09 13:28 | disposition home or self-care (01) ==
LOC: ED 10:53
DX: S20.212A Contusion of left front wall of thorax, initial encounter (principal); W01.0XXA Fall on same level from slipping, tripping and stumbling without subsequent striking against object, initial encounter; I11.9 Hypertensive heart disease without heart failure; K44.9 Diaphragmatic hernia without obstruction or gangrene; K57.90 Diverticulosis of intestine, part unspecified, without perforation or abscess without bleeding; K59.89 Other specified functional intestinal disorders; Z79.01 Long term (current) use of anticoagulants; Z79.891 Long term (current) use of opiate analgesic; Z79.899 Other long term (current) drug therapy